=== PATIENT | male | born 2000 | race Caucasian/White ===

== ENCOUNTER 2021-07-11 15:41 | Emergency (ER) | payer OTHER, SELFPAY ==
[2021-07-11 15:55] VITALS: BP 119/71; PULSE 62; RESP 16; TEMP 36.4; O2SAT 98
--- NOTE | 2021-07-11 16:06 | ED.URI ---
HPI - URI/Sore Throat General Chief Complaint: Upper Respiratory Infection Stated Complaint: sore throat/white spots Time Seen by Provider: 07/11/21 16:00 Source: patient Mode of arrival: ambulatory Limitations: no limitations History of Present Illness HPI Narrative: Mr. Warren is a 21-year-old male patient presenting to the clinic today with complaints of sore throat x2 to 3 days. Noticed some white spots in the back of his throat today. Has had mild nasal congestion but no cough. He denies any fever or chills. He denies being around anyone with strep throat or mono. No known exposure to anyone with Covid or influenza. MD elicited complaint: sore throat and nasal congestion Related Data Home Medications Medication Instructions Recorded Confirmed Prozac 07/11/21 Singulair 07/11/21 propranolol 07/11/21 Allergies Allergy/AdvReac Type Severity Reaction Status Date / Time Penicillins Allergy Rash Verified 07/11/21 16:00 Sulfa (Sulfonamide Allergy Rash Verified 07/11/21 16:00 Antibiotics) Review of Systems Review of Systems: Pertinent positives per HPI. Patient denies any fever, chills, rash, headache, visual changes, dizziness, cough, shortness of breath, chest pain, palpitations, nausea, vomiting, diarrhea, constipation, abdominal pain, or any urinary issues. PMFSH Comments At the time of my signature, I reviewed and agree with the nursing past medical, surgical, social, and family history. There is no relevant family history pertinent to the patient complaint. Exam Narrative: General: Well-developed, well nourished, in no apparent distress Head: Normocephalic, atraumatic Eyes: Pupils equally round and reactive to light bilaterally, EOM intact, sclera and conjunctive clear, no discharge, lids normal Ears: TMs intact and clear, ear canals clear, no drainage, grossly hearing normal. Nose: Nares patent, no discharge, no inflammation, no sinus tenderness. Mouth: Oral pharynx without lesions or masses, good dentition, MMM. Mild tonsillar enlargement left greater than right with some white exudate to the left tonsil. Neck: Supple, trachea midline, mild enlargement of the left anterior cervical node, no thyroid masses or goiter palpable. Cardio: Regular rate and rhythm, s1 and s2 normal, no murmur appreciated. Resp: Clear to auscultation bilaterally, no rhonchi, rales, wheezing or rubs Course Course Emergency Course: Portions of this record may have been created with voice recognition software. Level of Care: Express Care Visit Vital Signs Vital signs: Vital Signs Temperature 36.4 C 07/11/21 15:55 Pulse Rate 62 07/11/21 15:55 Respiratory Rate 16 07/11/21 15:55 Blood Pressure 119/71 07/11/21 15:55 Pulse Oximetry 98 07/11/21 15:55 Temperature 36.4 C 07/11/21 15:55 Pulse Rate 62 07/11/21 15:55 Respiratory Rate 16 07/11/21 15:55 Blood Pressure 119/71 07/11/21 15:55 Pulse Oximetry 98 07/11/21 15:55 Vital signs reviewed MDM - URI/Sore Throat MDM Narrative Medical decision making narrative: Upon assessment patient has mild exudate to the left tonsil. Strep screen is negative in the clinic. We will send for culture. Patient does not actively have a fever and does have some nasal congestion. I will await the culture report to treat strep at this time. Differential Diagnosis Differential diagnosis: Likely upper respiratory infection, sinusitis, viral infection, influenza and pharyngitis Lab Data Labs: Strep Screen Presumptive Negative *(Reference Range: Negative)* Discharge Plan Discharge Clinical Impression: Pharyngitis Qualifiers: Pharyngitis/tonsillitis etiology: unspecified etiology Qualified Code(s): J02.9 - Acute pharyngitis, unspecified Patient Disposition: Home, Self-Care Condition: Stable Instructions: Pharyngitis (ED) Additional Instructions: Strep screen negative in the cl
== END 2021-07-11 16:11 | disposition home or self-care (01) ==
PROVIDERS: Emergency Provider Nurse Practitioner Family
DX: J02.9 Acute pharyngitis, unspecified (principal)
CPT/HCPCS: 87081; 87880; 99213; G0463

== ENCOUNTER 2021-07-20 12:26 | Emergency (ER) | payer OTHER, SELFPAY ==
[2021-07-20 12:33] VITALS: BP 116/69; PULSE 71; RESP 16; TEMP 36.4; O2SAT 100
--- NOTE | 2021-07-20 12:33 | ED.EAR ---
HPI - Ear Problem General Chief complaint: Ear Stated complaint: EARACHE/FULLNESS Time Seen by Provider: 07/20/21 12:34 Source: patient, RN notes reviewed and old records reviewed Mode of arrival: ambulatory Limitations: no limitations History of Present Illness HPI Narrative: 21 year old male presents to [facility] care with complaints of bilateral ear pain for past 4 days with difficulty hearing. Patient reports that on Saturday he experienced some left ear pain with some minimal yellowing drainage from the left ear. He states that the left ear is feeling better but yesterday right ear pain became worse and he is experiencing some sharp pain to the right ear. Patient states that he has been taking Aleve for the pain and he has continued Sudafed daily.Patient reports that he was seen in clinic on the for sore throat and strep screen was negative with no complaints of any sore throat today, denies any known fevers. MD Complaint: ear pain, ear discharge and decreased hearing Location: bilateral Duration: constant Severity: moderate Relieving factors: nothing Associated symptoms ear: decreased hearing Treatment prior to arrival: oral analgesic Related Data Home Medications Medication Instructions Recorded Confirmed Prozac 07/11/21 Singulair 07/11/21 propranolol 07/11/21 Allergies Allergy/AdvReac Type Severity Reaction Status Date / Time Penicillins Allergy Rash Verified 07/11/21 16:00 Sulfa (Sulfonamide Allergy Rash Verified 07/11/21 16:00 Antibiotics) Review of Systems Review of Systems: CONSTITUTIONAL: Denies fever, chills, or sweats. EYES: Denies visual changes, redness, or discharge. ENT: Positive for rhinorrhea, mild nasal congestion,no sore throat, bilateral otalgia. CARDIOVASCULAR: Denies chest pain, palpitations, or edema. RESPIRATORY: Denies cough or dyspnea. GASTROINTESTINAL: Denies abdominal pain, nausea, vomiting, or diarrhea. GENITOURINARY: Denies dysuria or hematuria. SKIN: Denies rash or itching. MUSCULOSKELETAL: Denies back pain, joint pain, or myalgia. NEUROLOGIC: Denies headache, numbness, or weakness. PSYCHIATRIC: Positive history of anxiety or depression. All systems reviewed & are unremarkable except as noted in HPI and below PMFSH Past Medical History Medical History (Updated 07/20/21 @ 12:59 by Katerin Cline NP) Anxiety Environmental allergies Hx of migraines Surgical History Surgical History (Updated 07/20/21 @ 12:51 by Katerin Cline NP) History of placement of ear tubes as child Social History Social History (Updated 07/20/21 @ 12:52 by Katerin Cline NP) Smoking status: Never smoker Alcohol intake: current Alcohol use details: social Substance use: never Occupation/Education: student Gender identity (if verbalized by the patient): Male Comments At time of signature, agree with nursing past medical, surgical, social and family history. There is no relevant family history pertinent to the presenting complaint Exam Narrative: GENERAL: Well-appearing, well-nourished, and in no acute distress. HEAD: Normocephalic, atraumatic. EYES: PERRLA and EOMI. ENT: Nares mild redness with clear rhinorrhea no epistaxis. Mucous membranes moist.TM right ear red and bulging with no drainage noted. Left TM normal with dull light reflex, throat mild redness, no exudates or lesions, no tonsil enlargement, some post nasal drainage noted. NECK: Supple. no lymphadenopathy CHEST: Clear to auscultation. No respiratory distress.SAO2 100% on room air HEART: Regular rate and rhythm. No murmur heard. Normal peripheral pulses. ABDOMEN: Soft, nontender, nondistended, normal active bowel sounds. EXTREMITIES: Normal range of motion. No edema. SKIN: Warm, dry, no rash. NEURO: No focal deficits. Alert and oriented x3. Course Course Level of Care: Express Care Visit Medical Decision Making Differential Diagnosis Differential Diagnosis: otitis media, otitis externa,
== END 2021-07-20 12:50 | disposition home or self-care (01) ==
PROVIDERS: Emergency Provider Registered Nurse
DX: H65.01 Acute serous otitis media, right ear (principal)
CPT/HCPCS: 99213; G0463